=== PATIENT | male | born 1975 | race Caucasian/White ===

== ENCOUNTER 2016-06-17 15:40 | Emergency (ER) | payer MEDICAID ==
--- NOTE | 2016-06-17 15:41 | EDPHY ---
H & P Allergies/Adverse Reactions: No Known Allergies Allergy (Verified 06/17/16 15:47) Home Medications: Medication Instructions Recorded NK [No Known Home Meds] 02/10/13 Medical Decision Making ED Course/Re-evaluation: CHIEF COMPLAINT: Ketamine use HISTORY OF PRESENT ILLNESS: The patient is a 41 y/o male arriving via EMS after he was found sleeping by bystanders. He endorses snorting Ketamine this afternoon. EMS reports he was disoriented on scene, but otherwise stable. The patient is oriented upon arrival here and denies any complaints and states he feels "great." He denies recent illness or trauma, headache, chest pain, dyspnea , fever, or other complaints. No co-ingestions. He denies suicidal or homicidal ideation. He denies pertinent medical history. REVIEW OF SYSTEMS: A 10 point review of systems was performed and is negative with the exception of the elements mentioned in the history of present illness. PHYSICAL EXAM: HR, BP, O2 Sat, RR. Temp noted General Appearance: Alert, well hydrated, appropriate, and non-toxic appearing. Head: Atraumatic without scalp tenderness or obvious injury Eyes: Pupils equal, round, reactive to light and accommodation, EOMI, no trauma , no injection. Nose: Atraumatic, no rhinorrhea, clear. Throat: mucus membranes moist. Neck: Supple, nontender, no lymphadenopathy. Respiratory: No retractions, no distress, no wheezes, and no accessory muscle use. Lungs are clear to auscultation bilaterally. Cardiovascular: Regular rate and rhythm, no murmurs, rubs, or gallops. Good capillary refill all extremities. Gastrointestinal: Abdomen is soft, nontender, non-distended, no masses, no rebound, no guarding, no peritoneal signs. Musculoskeletal: Normal active ROM of all extremities, atraumatic. Neurological: Alert, appropriate, and interactive. Nonfocal neuro exam. Skin: No rashes, good turgor, no nodules on palpation. Past medical history: denies Past surgical history: denies Family history: noncontributory Social history: Substance abuse including Ketamine. DIFFERENTIAL DIAGNOSIS: The differential diagnosis for the patient's altered mental status included but was not limited to hypoglycemia, infectious process, electrolyte abnormality, head injury, neurologic process, anemia, cardiac process, and intoxicants. MEDICAL DECISION MAKING: This is a 41 y/o male presenting to the ED after bystanders found him sleeping and disoriented. He is fully alert and oriented here and denies any complaints. His exam is unremarkable. He declines any further treatment. He will be discharged home in good condition. I've advised him to discontinue use of illicit drugs. He expresses agreement and understanding. Return precautions given. Departure - Departure Disposition: Home, Routine, Self-Care Clinical Impression: Ketamine use disorder, mild Condition: Good Instructions: Polysubstance Abuse (ED) Additional Instructions: Avoid use of illicit drugs. Follow up with your primary care provider for any symptoms not improved over the next 2-3 days. Referrals: [facility],. [Clinic] - As per Instructions Report Scribed for: Eleno Krishnan Report Scribed by: Libra Rich Date of Report: 06/17/16 Time of Report: 15:43
[2016-06-17 15:49] VITALS: BP 136/99; PULSE 136; RESP 18; TEMP 97.5; O2SAT 92
== END 2016-06-17 15:54 | disposition home or self-care (01) ==
LOC: EDUNIT#
DX: F13.90 Sedative, hypnotic, or anxiolytic use, unspecified, uncomplicated (principal)